=== PATIENT | male | born 1935 | race Caucasian/White ===

== ENCOUNTER 2020-11-13 11:28 | Emergency (ER) | payer MEDICARE, OTHER ==
[~2020-11-13] VITALS: Ht 182.9 cm; Wt 81.6 kg
[~2020-11-13 11:28] MED LIST: ASPI-543 PO; AZIL40TA3; BENA20TA14 PO; BICA50TA13; CLOP75TA28 PO; CLOP75TA41; ESOM40CA39 PO; FUR20T; FURO20TA3 PO; METF-916; MULTTAB5 OR; NEBI10TA2 PO; NIFE1TAB30 PO; ROSU1TAB12; ROSU5TAB5 PO
[2020-11-13 14:49] LABS: Basophils # (auto) 0 10 ^3/uL (0-0.2); Basophils % (auto) 0.2 % (0.0-2.0); Eosinophils # (auto) 0 10 ^3/uL (0-0.8); Hemoglobin 10.1 g/dL (13.5-17.5); Lymphocytes # (auto) 0.6 10 ^3/uL (0.4-5.4); Monocytes # (auto) 0.5 10 ^3/uL (0-1.3); Neutrophils # (auto) 10.2 10 ^3/uL (1.6-8.6); White Blood Cell 11.3 10^3/uL (4.4-10.8)
[2020-11-13 14:50] LABS: Eosinophils % (auto) 0.1 % (0.0-7.0); Hematocrit 31.4 % (41.0-53.0); Lymphocytes % (auto) 5.4 % (10.0-50.0); Mean Corpuscular Hemoglobin 25.8 pg (28.0-32.0); Mean Corpuscular Hgb Conc. 32.2 g/dL (32.0-36.0); Mean Corpuscular Volume 80.1 fL (80.0-100.0); Monocytes % (auto) 4.3 % (0.0-12.0); Platelet Count (auto) 277 10^3/uL (140-450); Red Blood Cells 3.92 10^6/uL (4.5-5.90); Red Cell Distribution Width 16.2 % (11.8-14.3)
[2020-11-13 16:04] LABS: Chloride 108 mmol/L (98-107); Potassium 3.7 mmol/L (3.5-5.1); Sodium 140 mmol/L (136-145)
[2020-11-13 16:23] LABS: Alanine Aminotransferase 18 U/L (16-61); Alkaline Phosphatase 73 U/L (45-117); Anion Gap 4 (5-15); Aspartate Aminotransferase 11 U/L (15-37); BUN/Creatinine Ratio 21.7; Bilirubin, Total 0.3 mg/dL (0.2-1.0); Blood Alcohol < 3.0 mg/dL (0-5); Blood Urea Nitrogen 28 mg/dL (7-18); Calcium 8.6 mg/dL (8.5-10.1); Carbon Dioxide 28 mmol/L (21-32); GFR African American 68 mL/min; GFR Non-African American 56 mL/min; Glucose 117 mg/dL (74-106); Magnesium 1.8 mg/dL (1.6-2.6); Total Protein 6.9 g/dL (6.4-8.2)
[2020-11-14 02:38] VITALS: BP 151/64
== END 2020-11-13 20:50 | disposition home or self-care (01) ==
LOC: ER 11:28 → EDBD 11:28 → ER 20:50
DX: R41.82 Altered mental status, unspecified (principal); R79.1 Abnormal coagulation profile; C64.9 Malignant neoplasm of unspecified kidney, except renal pelvis; R07.9 Chest pain, unspecified
CPT/HCPCS: 36415; 70450; 71045; 80053; 80320; 83735; 84484; 85025; 85379; 93005; 99291

== ENCOUNTER 2021-12-30 16:28 | Emergency (ER) | payer MEDICARE, OTHER ==
[~2021-12-30] VITALS: Ht 175.3 cm; Wt 90.7 kg
[~2021-12-30 16:28] MED LIST changes: -CLOP75TA41; +CLOP75TA70
[2021-12-30] MEDS ORDERED: MORPHINE SULFATE 4 MG/ML SYR/VIAL IV ONE (17:00)
[2021-12-30] MEDS ORDERED: SODIUM CHLORIDE 0.9% 1,000 ML IV ONE (17:00)
[2021-12-30] MEDS ORDERED: SODIUM CHLORIDE 0.9% 500 ML IVB ONE (17:00)
[2021-12-30] MEDS ORDERED: ONDANSETRON HCL 4 MG/2 ML VIAL IV ONE ×2 (17:00→21:15)
[2021-12-30 17:33] LABS: Basophils # (auto) 0 10 ^3/uL (0-0.2); Basophils % (auto) 0.2 % (0.0-2.0); Eosinophils # (auto) 0 10 ^3/uL (0-0.8); Eosinophils % (auto) 0.2 % (0.0-7.0); Mean Corpuscular Hemoglobin 25.5 pg (28.0-32.0); Monocytes # (auto) 0.9 10 ^3/uL (0-1.3); Neutrophils # (auto) 8.4 10 ^3/uL (1.6-8.6)
[2021-12-30 17:36] LABS: Hematocrit 25.3 % (41.0-53.0); Hemoglobin 8.4 g/dL (13.5-17.5); Lymphocytes # (auto) 0.8 10 ^3/uL (0.4-5.4); Mean Corpuscular Hgb Conc. 33.4 g/dL (32.0-36.0); Mean Corpuscular Volume 76.6 fL (80.0-100.0); Monocytes % (auto) 8.6 % (0.0-12.0); Red Cell Distribution Width 16.2 % (11.8-14.3); White Blood Cell 10.1 10^3/uL (4.4-10.8)
[2021-12-30 17:53] LABS: Urine Bacteria NONE SEEN /hpf (None Seen); Urine Blood 1+ /uL (Negative); Urine Hyaline Cast MOD /lpf (0 - 2); Urine Specific Gravity 1.011 (1.001-1.035); Urine WBC 1685 /hpf (0 - 3); Urine WBC Clumps PRESENT /hpf (None Seen)
[2021-12-30 17:56] LABS: Albumin 2.1 g/dL (3.4-5.0); Calcium 7.8 mg/dL (8.5-10.1); Magnesium 2.1 mg/dL (1.6-2.6); Potassium 3.1 mmol/L (3.5-5.1)
[2021-12-30 18:00] LABS: BUN/Creatinine Ratio 30.6; Bilirubin, Total 0.4 mg/dL (0.2-1.0); Total Protein 6.1 g/dL (6.4-8.2)
[2021-12-30] MEDS ORDERED: IOHEXOL 300 MG/ML 100ML BOTTLE IJ ONE (18:24)
[2021-12-30] MEDS ORDERED: cefTRIAXone 1GM/50ML D5W 50 ML IV ONE ×2 (21:00→21:25)
[2021-12-30] MEDS ORDERED: CEFD300C2 PO ×2 (21:03→21:22)
[2021-12-30] MEDS ORDERED: MAGNESIUM CITRATE SOLUTION 300 ML BTL PO ONE (21:15)
[2021-12-30 23:45] VITALS: BP 120/34
== END 2021-12-31 06:21 | disposition home or self-care (01) ==
LOC: EDBD 16:28 → ER 16:28
DX: N39.0 Urinary tract infection, site not specified (principal); K59.00 Constipation, unspecified; I48.20 Chronic atrial fibrillation, unspecified; D50.9 Iron deficiency anemia, unspecified; E11.9 Type 2 diabetes mellitus without complications; I10 Essential (primary) hypertension; Z86.73 Personal history of transient ischemic attack (TIA), and cerebral infarction without residual deficits
CPT/HCPCS: 36415; 71045; 74177; 80053; 81001; 83690; 83735; 84443; 85025; 87086; 87088; 87186; 93005; 96361; 96365; 96375; 99285; J0696; J2270; J2405; J7030; J7040; Q9967

== ENCOUNTER 2022-06-09 12:46 | Inpatient (IN) | payer MEDICARE, OTHER ==
[~2022-06-09] VITALS: Ht 182.9 cm; Wt 82.4 kg
[~2022-06-09 12:46] MED LIST changes: +CEFD300C2 PO
[2022-06-09] MEDS ORDERED: SODIUM CHLORIDE 0.9% 1,000 ML IV ONE (13:00)
[2022-06-09 13:45] LABS: Basophils # (auto) 0 10 ^3/uL (0-0.2); Basophils % (auto) 0.4 % (0.0-2.0); Eosinophils # (auto) 0.2 10 ^3/uL (0-0.8); Hemoglobin 7.5 g/dL (13.5-17.5); Monocytes # (auto) 0.6 10 ^3/uL (0-1.3)
[2022-06-09 13:47] LABS: Eosinophils % (auto) 2.7 % (0.0-7.0); Hematocrit 24.1 % (41.0-53.0); Lymphocytes # (auto) 1.2 10 ^3/uL (0.4-5.4); Lymphocytes % (auto) 14.3 % (10.0-50.0); Mean Corpuscular Hemoglobin 24.2 pg (28.0-32.0); Mean Corpuscular Hgb Conc. 31.2 g/dL (32.0-36.0); Mean Corpuscular Volume 77.6 fL (80.0-100.0); Monocytes % (auto) 6.9 % (0.0-12.0); Neutrophils # (auto) 6.4 10 ^3/uL (1.6-8.6); Neutrophils % (auto) 75.7 % (37.0-80.0); Red Cell Distribution Width 17.5 % (11.8-14.3); White Blood Cell 8.4 10^3/uL (4.4-10.8)
[2022-06-09 13:59] LABS: INR 1.04 (0.9-1.15); Partial Thromboplastin Time 28.2 sec (24.6-33.4)
[2022-06-09 14:00] LABS: Albumin 2.7 g/dL (3.4-5.0); BUN/Creatinine Ratio 29.4; Calcium 8.6 mg/dL (8.5-10.1); Potassium 3.2 mmol/L (3.5-5.1)
[2022-06-09 14:04] LABS: Bilirubin, Total 0.2 mg/dL (0.2-1.0); Total Protein 6.6 g/dL (6.4-8.2)
[2022-06-09] MEDS ORDERED: AZITHROMYCIN 500MG/ 250ML 250 ML IV ONE (15:00)
[2022-06-09] MEDS ORDERED: cefTRIAXone 1GM/50ML D5W 50 ML IV ONE (15:00)
[2022-06-09] MEDS ORDERED: PANTOPRAZOLE 40 MG/10 ML VIAL INJ IV ONE (15:45)
[2022-06-09] MEDS ORDERED: DOCUSATE SOD 100 MG CAP PO ONE (16:00)
[2022-06-09] MEDS ORDERED: NITROGLYCERIN 0.4 MG SL TAB SL PRN (16:15)
[2022-06-09] MEDS ORDERED: MORPHINE SULFATE INJ 2 MG/ml SYRG IV PRN (16:15)
[2022-06-10 00:24] VITALS: BP 133/47
[2022-06-10 05:00] VITALS: BP 132/72
[2022-06-10 06:28] LABS: Basophils # (auto) 0 10 ^3/uL (0-0.2); Basophils % (auto) 0.5 % (0.0-2.0); Eosinophils # (auto) 0.3 10 ^3/uL (0-0.8); Hematocrit 24.6 % (41.0-53.0); Hemoglobin 7.7 g/dL (13.5-17.5); Lymphocytes # (auto) 1.4 10 ^3/uL (0.4-5.4); Mean Corpuscular Hemoglobin 24.5 pg (28.0-32.0); Mean Corpuscular Hgb Conc. 31.3 g/dL (32.0-36.0); Monocytes # (auto) 0.6 10 ^3/uL (0-1.3); Red Blood Cells 3.14 10^6/uL (4.5-5.90)
[2022-06-10 06:31] LABS: Eosinophils % (auto) 3.8 % (0.0-7.0); Lymphocytes % (auto) 17.2 % (10.0-50.0); Mean Corpuscular Volume 78.3 fL (80.0-100.0); Monocytes % (auto) 7.2 % (0.0-12.0); Neutrophils # (auto) 5.7 10 ^3/uL (1.6-8.6); Neutrophils % (auto) 71.3 % (37.0-80.0); Red Cell Distribution Width 17.7 % (11.8-14.3); White Blood Cell 7.9 10^3/uL (4.4-10.8)
[2022-06-10 06:32] LABS: Potassium 3.4 mmol/L (3.5-5.1)
[2022-06-10 06:39] LABS: Albumin 2.7 g/dL (3.4-5.0); BUN/Creatinine Ratio 31.6; Bilirubin, Total 0.3 mg/dL (0.2-1.0); Calcium 8.3 mg/dL (8.5-10.1); Total Protein 6.5 g/dL (6.4-8.2)
[2022-06-10 09:00] VITALS: BP 116/55
[2022-06-10 13:00] VITALS: BP 103/45
[2022-06-10 17:00] VITALS: BP 117/50
[2022-06-10 22:00] VITALS: BP 127/50
[2022-06-10] MEDS: DOCUSATE SOD 100 MG CAP PO SCH (22:00)
[2022-06-11 05:00] VITALS: BP 134/47
[2022-06-11 08:20] VITALS: BP 124/50
[2022-06-11 09:00] VITALS: BP 124/50
[2022-06-11] MEDS: DOCUSATE SOD 100 MG CAP PO SCH ×2 (10:08→21:32)
[2022-06-11 13:00] VITALS: BP 109/49
[2022-06-11 17:00] VITALS: BP 109/47
[2022-06-11 21:49] VITALS: BP_SYST 101; BP_SYST 166; BP_DIAS 43; BP_DIAS 91
[2022-06-12 04:24] VITALS: BP 117/50
[2022-06-12 08:30] VITALS: BP 116/49
[2022-06-12] MEDS: DOCUSATE SOD 100 MG CAP PO SCH ×2 (09:06→21:20)
[2022-06-12 09:14] VITALS: BP 116/49
[2022-06-12 13:18] VITALS: BP 115/48
[2022-06-12 17:28] VITALS: BP 111/68
[2022-06-13 07:30] VITALS: BP 118/77
[2022-06-13 09:00] VITALS: BP 118/77
[2022-06-13] MEDS: DOCUSATE SOD 100 MG CAP PO SCH ×2 (09:09→22:00)
[2022-06-13 13:00] VITALS: BP 115/56
[2022-06-13 16:35] VITALS: BP 113/55
[2022-06-14 05:00] VITALS: BP 131/58
[2022-06-14 05:27] LABS: Basophils # (auto) 0 10 ^3/uL (0-0.2); Basophils % (auto) 0.4 % (0.0-2.0); Eosinophils # (auto) 0.2 10 ^3/uL (0-0.8); Eosinophils % (auto) 1.6 % (0.0-7.0); Lymphocytes # (auto) 0.8 10 ^3/uL (0.4-5.4); Monocytes # (auto) 0.8 10 ^3/uL (0-1.3)
[2022-06-14 05:29] LABS: Hematocrit 20.5 % (41.0-53.0); Lymphocytes % (auto) 8.7 % (10.0-50.0); Mean Corpuscular Hgb Conc. 32.6 g/dL (32.0-36.0); Mean Corpuscular Volume 76.9 fL (80.0-100.0); Monocytes % (auto) 8.3 % (0.0-12.0); Neutrophils # (auto) 7.6 10 ^3/uL (1.6-8.6); Red Blood Cells 2.67 10^6/uL (4.5-5.90); Red Cell Distribution Width 17.4 % (11.8-14.3); White Blood Cell 9.4 10^3/uL (4.4-10.8)
[2022-06-14 05:39] LABS: Hemoglobin 6.7 g/dL (13.5-17.5)
[2022-06-14 05:49] LABS: Albumin 2.5 g/dL (3.4-5.0); Calcium 8.4 mg/dL (8.5-10.1); Potassium 3.4 mmol/L (3.5-5.1)
[2022-06-14 05:50] LABS: INR 1.07 (0.9-1.15); Partial Thromboplastin Time 29.8 sec (24.6-33.4)
[2022-06-14 05:55] LABS: Bilirubin, Total 0.4 mg/dL (0.2-1.0); Total Protein 6.3 g/dL (6.4-8.2)
[2022-06-14 05:58] LABS: BUN/Creatinine Ratio 19.2
[2022-06-14 09:30] VITALS: BP 123/54
[2022-06-14 09:45] VITALS: BP 131/51
[2022-06-14] MEDS: DOCUSATE SOD 100 MG CAP PO SCH ×2 (10:00→21:30)
[2022-06-14] MEDS ORDERED: CIPROFLOXACIN 400MG/200ML 200 ML IV ONE (10:26)
[2022-06-14 10:27] VITALS: BP 129/53
[2022-06-14] MEDS ORDERED: TETRACAINE 1% INJ 2 ML VIAL IJ ONE (10:29)
[2022-06-14] MEDS ORDERED: MIDAZOLAM HCL 2MG/2ML 2ml VIAL (1mg/ml) ONE (10:40)
[2022-06-14] MEDS ORDERED: PROPOFOL 10 MG/ML 20 ML IV ONE (11:52)
[2022-06-14] MEDS ORDERED: ONDANSETRON HCL 4 MG/2 ML VIAL IV PRN (12:00)
[2022-06-14] MEDS ORDERED: HYDROmorphone HCL 2 MG/ML VL/or syr IV PRN (12:00)
[2022-06-14] MEDS ORDERED: ePHEDrine SULFATE 50 MG/ML AMP ONE (12:03)
[2022-06-14 21:16] VITALS: BP 110/48
[2022-06-14 23:21] LABS: Hemoglobin 7.2 g/dL (13.5-17.5)
[2022-06-14 23:23] LABS: Hematocrit 22.9 % (41.0-53.0)
[2022-06-15 05:00] VITALS: BP 129/51
[2022-06-15 08:57] VITALS: BP 131/55
[2022-06-15] MEDS: DOCUSATE SOD 100 MG CAP PO SCH ×2 (09:46→21:35)
[2022-06-15 13:04] VITALS: BP 126/51
[2022-06-15] MEDS ORDERED: LIDOCAINE VISCOUS 2% 15ML UD MT ONE (17:30)
[2022-06-15 17:56] VITALS: BP 141/55
[2022-06-15] MEDS ORDERED: LIDOCAINE 2% JELLY 11ml (GLYDO) UR ONE (18:00)
[2022-06-15 22:00] VITALS: BP 127/64
[2022-06-16 04:00] VITALS: BP 132/65
[2022-06-16 09:00] VITALS: BP 120/51
[2022-06-16] MEDS: DOCUSATE SOD 100 MG CAP PO SCH ×2 (10:25→21:41)
[2022-06-16 12:44] VITALS: BP 129/60
[2022-06-16] MEDS: SODIUM FERR GLUC 62.5MG/5ML 125 MG in SODIUM CHL 0.9% 100 ML IV SCH (15:00)
[2022-06-16] MEDS ORDERED: EPOETIN ALFA-EPBX 10,000 UNIT/1ML VIAL SC ONE (15:00)
[2022-06-16 15:57] LABS: Basophils # (auto) 0 10 ^3/uL (0-0.2); Eosinophils # (auto) 0 10 ^3/uL (0-0.8); Eosinophils % (auto) 0.3 % (0.0-7.0); Hemoglobin 7.8 g/dL (13.5-17.5); Lymphocytes # (auto) 0.3 10 ^3/uL (0.4-5.4); Neutrophils # (auto) 6.5 10 ^3/uL (1.6-8.6)
[2022-06-16 15:59] LABS: Basophils % (auto) 0.5 % (0.0-2.0); Hematocrit 24.5 % (41.0-53.0); Lymphocytes % (auto) 3.8 % (10.0-50.0); Mean Corpuscular Hemoglobin 24.9 pg (28.0-32.0); Mean Corpuscular Hgb Conc. 31.9 g/dL (32.0-36.0); Monocytes % (auto) 12.9 % (0.0-12.0); Neutrophils % (auto) 82.5 % (37.0-80.0); Nucleated Red Blood Cells % 0.2 %; Red Blood Cells 3.14 10^6/uL (4.5-5.90); Red Cell Distribution Width 17.4 % (11.8-14.3); White Blood Cell 7.9 10^3/uL (4.4-10.8)
[2022-06-16 16:04] LABS: Albumin 2.1 g/dL (3.4-5.0); BUN/Creatinine Ratio 14.5; Calcium 7.8 mg/dL (8.5-10.1); Potassium 3.1 mmol/L (3.5-5.1)
[2022-06-16 16:07] LABS: Bilirubin, Total 0.3 mg/dL (0.2-1.0); Total Protein 5.6 g/dL (6.4-8.2)
[2022-06-16 17:00] VITALS: BP 124/50
[2022-06-16 22:00] VITALS: BP 112/47
[2022-06-17 05:00] VITALS: BP 130/45
[2022-06-17 06:06] LABS: Basophils # (auto) 0 10 ^3/uL (0-0.2); Basophils % (auto) 0.2 % (0.0-2.0); Eosinophils # (auto) 0 10 ^3/uL (0-0.8); Monocytes # (auto) 0.4 10 ^3/uL (0-1.3)
[2022-06-17 06:11] LABS: Hematocrit 22.8 % (41.0-53.0); Hemoglobin 7.2 g/dL (13.5-17.5); Lymphocytes # (auto) 0.2 10 ^3/uL (0.4-5.4); Lymphocytes % (auto) 1.5 % (10.0-50.0); Mean Corpuscular Hemoglobin 24.8 pg (28.0-32.0); Mean Corpuscular Hgb Conc. 31.6 g/dL (32.0-36.0); Mean Corpuscular Volume 78.5 fL (80.0-100.0); Monocytes % (auto) 3.4 % (0.0-12.0); Neutrophils # (auto) 9.8 10 ^3/uL (1.6-8.6); Neutrophils % (auto) 94.9 % (37.0-80.0); Red Cell Distribution Width 17.3 % (11.8-14.3); White Blood Cell 10.3 10^3/uL (4.4-10.8)
[2022-06-17 09:00] VITALS: BP 115/49
[2022-06-17] MEDS: DOCUSATE SOD 100 MG CAP PO SCH ×3 (10:00→21:45)
[2022-06-17] MEDS ORDERED: ACETAMINOPHEN 325 MG TAB PO PRN (10:45)
[2022-06-17] MEDS ORDERED: ACETAMINOPHEN 650 MG RECT SUPP PR PRN (11:30)
[2022-06-17] MEDS: SODIUM FERR GLUC 62.5MG/5ML 125 MG in SODIUM CHL 0.9% 100 ML IV SCH (12:00)
[2022-06-17 13:00] VITALS: BP 103/44
[2022-06-17] MEDS ORDERED: GENTAMICIN SULFATE 180 MG in D5W 5% 100 ML IV ONE (13:15)
[2022-06-17] MEDS ORDERED: PIPERACILLIN-TAZO 4.5GM 100 ML IV SCH (14:00)
[2022-06-17 17:00] VITALS: BP 96/51
[2022-06-17 21:33] VITALS: BP 104/50
[2022-06-17] MEDS ORDERED: IPRATROPIUM BROM 0.5 MG/2.5ML INH SOL NEB ONE (21:45)
[2022-06-17] MEDS: AZTREONAM 1GM INJ 1 GM in D5W 5% 50 ML IV SCH (21:45)
[2022-06-17 21:48] VITALS: BP 104/50
[2022-06-18] MEDS ORDERED: IPRATROPIUM BROM 0.5 MG/2.5ML INH SOL NEB PRN (04:00)
[2022-06-18 04:54] VITALS: BP 108/51
[2022-06-18] MEDS: AZTREONAM 1GM INJ 1 GM in D5W 5% 50 ML IV SCH ×3 (05:21→23:50)
[2022-06-18 08:31] VITALS: BP 110/55
[2022-06-18] MEDS: DOCUSATE SOD 100 MG CAP PO SCH ×2 (10:00→21:48)
[2022-06-18] MEDS: VANCOMYCIN 1GM/250ML 250 ML IV SCH (10:00)
[2022-06-18] MEDS: SODIUM FERR GLUC 62.5MG/5ML 125 MG in SODIUM CHL 0.9% 100 ML IV SCH (12:00)
[2022-06-18 12:28] VITALS: BP 115/60
[2022-06-18 16:43] VITALS: BP 118/64
[2022-06-18 22:00] VITALS: BP 155/55
[2022-06-19] VITALS (10 sets, daily range): BP systolic 109–149; BP diastolic 41–74
[2022-06-19] MEDS: AZTREONAM 1GM INJ 1 GM in D5W 5% 50 ML IV SCH ×3 (06:00→22:39)
[2022-06-19] MEDS: VANCOMYCIN 1GM/250ML 250 ML IV SCH (09:11)
[2022-06-19] MEDS: DOCUSATE SOD 100 MG CAP PO SCH ×2 (09:17→21:29)
[2022-06-19] MEDS: SODIUM FERR GLUC 62.5MG/5ML 125 MG in SODIUM CHL 0.9% 100 ML IV SCH (11:52)
[2022-06-19] MEDS: POTASSIUM CHL 20MEQ/100ML 100 ML IV SCH ×3 (13:31→20:22)
[2022-06-20 05:03] VITALS: BP 138/56
[2022-06-20] MEDS: AZTREONAM 1GM INJ 1 GM in D5W 5% 50 ML IV SCH ×3 (05:31→23:26)
[2022-06-20 05:32] LABS: Basophils # (auto) 0 10 ^3/uL (0-0.2); Basophils % (auto) 0.3 % (0.0-2.0); Eosinophils # (auto) 0 10 ^3/uL (0-0.8); Eosinophils % (auto) 0.5 % (0.0-7.0); Hematocrit 25.6 % (41.0-53.0); Hemoglobin 8.2 g/dL (13.5-17.5); Lymphocytes # (auto) 0.5 10 ^3/uL (0.4-5.4); Lymphocytes % (auto) 10.9 % (10.0-50.0); Mean Corpuscular Hemoglobin 25.8 pg (28.0-32.0); Mean Corpuscular Hgb Conc. 32.2 g/dL (32.0-36.0); Mean Corpuscular Volume 79.9 fL (80.0-100.0); Monocytes # (auto) 0.5 10 ^3/uL (0-1.3); Monocytes % (auto) 10.8 % (0.0-12.0); Neutrophils # (auto) 3.4 10 ^3/uL (1.6-8.6); Neutrophils % (auto) 77.5 % (37.0-80.0); Nucleated Red Blood Cells % 0.1 %; Red Cell Distribution Width 18.3 % (11.8-14.3); White Blood Cell 4.3 10^3/uL (4.4-10.8)
[2022-06-20 05:49] LABS: Potassium 3.2 mmol/L (3.5-5.1)
[2022-06-20 06:01] LABS: Albumin 2.1 g/dL (3.4-5.0); BUN/Creatinine Ratio 22.5; Bilirubin, Total 0.4 mg/dL (0.2-1.0); Total Protein 5.9 g/dL (6.4-8.2)
[2022-06-20 08:45] VITALS: BP 160/70
[2022-06-20] MEDS: DOCUSATE SOD 100 MG CAP PO SCH ×2 (08:49→23:26)
[2022-06-20] MEDS: VANCOMYCIN 1GM/250ML 250 ML IV SCH (09:00)
[2022-06-20] MEDS: SODIUM FERR GLUC 62.5MG/5ML 125 MG in SODIUM CHL 0.9% 100 ML IV SCH (12:37)
[2022-06-20 13:00] VITALS: BP 125/80
[2022-06-20 16:35] VITALS: BP 130/67
[2022-06-20 21:48] VITALS: BP 118/77
[2022-06-21 05:20] VITALS: BP 146/65
[2022-06-21] MEDS: AZTREONAM 1GM INJ 1 GM in D5W 5% 50 ML IV SCH (05:33)
[2022-06-21 08:40] VITALS: BP 127/72
[2022-06-21] MEDS: VANCOMYCIN 1GM/250ML 250 ML IV SCH ×2 (09:57→11:28)
[2022-06-21] MEDS: DOCUSATE SOD 100 MG CAP PO SCH (09:57)
[2022-06-21] MEDS ORDERED: POTASSIUM EFFERVESENT TAB 25 MEQ GT ONE (10:45)
[2022-06-21] MEDS ORDERED: SODIUM FERR GLUC 62.5MG/5ML 125 MG in SODIUM CHL 0.9% 100 ML IV ONE (10:45)
[2022-06-21] MEDS ORDERED: EPOETIN ALFA-EPBX 10,000 UNIT/1ML VIAL SC ONE (11:00)
[2022-06-21] MEDS: SODIUM FERR GLUC 62.5MG/5ML 125 MG in SODIUM CHL 0.9% 100 ML IV SCH (11:20)
[2022-06-22] MEDS ORDERED: methylPREDNISolone SOD SUCC 40 MG/ML VL IV SCH (10:00)
== END 2022-06-21 13:56 | disposition hospice, home (50) | DRG 853 ==
LOC: EDBD 12:46 → ER 12:46 → TELE 16:13 → TELE-WESTW 23:01
PROVIDERS: ADMIT Registered Nurse; ATTEND Internal Medicine Cardiovascular Disease
PROC: 0TBD8ZZ Excision of Urethra, Via Natural or Artificial Opening Endoscopic (ICD-10-PCS; 2022-06-14)
PROC: 0TCD8ZZ Extirpation of Matter from Urethra, Via Natural or Artificial Opening Endoscopic (ICD-10-PCS; principal; 2022-06-14 10:39)
PROC: 30233N1 Transfusion of Nonautologous Red Blood Cells into Peripheral Vein, Percutaneous Approach (ICD-10-PCS; 2022-06-19)
PROC: 05H933Z Insertion of Infusion Device into Right Brachial Vein, Percutaneous Approach (ICD-10-PCS; 2022-06-19)
PROC: B54MZZA Ultrasonography of Right Upper Extremity Veins, Guidance (ICD-10-PCS; 2022-06-19)
DX: A41.9 Sepsis, unspecified organism (principal); J18.1 Lobar pneumonia, unspecified organism; C20 Malignant neoplasm of rectum; K62.5 Hemorrhage of anus and rectum; N30.41 Irradiation cystitis with hematuria; I48.20 Chronic atrial fibrillation, unspecified; E44.1 Mild protein-calorie malnutrition; D49.59 Neoplasm of unspecified behavior of other genitourinary organ; K63.89 Other specified diseases of intestine; E11.22 Type 2 diabetes mellitus with diabetic chronic kidney disease; I12.9 Hypertensive chronic kidney disease with stage 1 through stage 4 chronic kidney disease, or unspecified chronic kidney disease; N18.31 Chronic kidney disease, stage 3a; N40.0 Benign prostatic hyperplasia without lower urinary tract symptoms; K59.00 Constipation, unspecified; R31.0 Gross hematuria; Z20.822 Contact with and (suspected) exposure to COVID-19; D50.9 Iron deficiency anemia, unspecified; H91.90 Unspecified hearing loss, unspecified ear; E87.6 Hypokalemia; I25.10 Atherosclerotic heart disease of native coronary artery without angina pectoris; C61 Malignant neoplasm of prostate; C67.9 Malignant neoplasm of bladder, unspecified; J44.9 Chronic obstructive pulmonary disease, unspecified; Z86.73 Personal history of transient ischemic attack (TIA), and cerebral infarction without residual deficits; Z85.46 Personal history of malignant neoplasm of prostate; Z92.3 Personal history of irradiation; Z74.01 Bed confinement status; Z85.51 Personal history of malignant neoplasm of bladder; Z88.0 Allergy status to penicillin; Z51.5 Encounter for palliative care; Z68.26 Body mass index [BMI] 26.0-26.9, adult; Z79.84 Long term (current) use of oral hypoglycemic drugs
CPT/HCPCS: 36415; 36600; 71045; 74176; 80053; 80202; 82728; 82805; 84484; 85014; 85018; 85025; 85610; 85730; 86850; 86900; 86901; 86920; 87077; 87186; 87205; 92610; 94640; 96361; 96365; 96368; 97163; C9113; G0378; J0696; J2250; J2704; J3480; J7060